=== PATIENT | female | born 1995 | race Caucasian/White ===

== ENCOUNTER 2024-11-15 05:22 | Inpatient (IN) | payer OTHER ==
[2024-11-15] MEDS: PHENAZOPYRIDINE HCL 100 MG TABLET (FP) PO ONE (06:50)
[2024-11-15] MEDS: GABAPENTIN 300 MG CAPSULE PO ONE (06:50)
[2024-11-15] MEDS ORDERED: PROPOFOL 20 ML ONE ×2 (07:13→08:28)
[2024-11-15] MEDS ORDERED: ROCURONIUM BROMIDE 50 MG/5 ML SYRINGE ONE ×3 (07:14→09:48)
[2024-11-15] MEDS ORDERED: MIDAZOLAM HCL 2 MG/2 ML SINGLE DOSE VIAL ONE ×2 (07:14→07:49)
[2024-11-15] MEDS ORDERED: HEPARIN NA (PORCINE) 5,000 UNITS/ML 1ML VIAL ONE (07:24)
[2024-11-15] MEDS ORDERED: oxyCODONE HCL 5 MG TABLET PO PRN ×2 (07:44)
[2024-11-15] MEDS ORDERED: ONDANSETRON 4 MG/2 ML VIAL IVPUSH PRN ×2 (07:44→10:51)
[2024-11-15] MEDS ORDERED: ACETAMINOPHEN 325 MG TABLET (FP) PO PRN (07:44)
[2024-11-15] MEDS: ceFAZolin SODIUM 1 GM VIAL IVPB ONE (08:04)
[2024-11-15] MEDS ORDERED: SUGAMMADEX SODIUM 200 MG/2 ML VIAL ONE (08:21)
[2024-11-15] MEDS: HEPARIN NA (PORCINE) 5,000 UNITS/ML 1ML VIAL SQ ONE (08:29)
[2024-11-15] MEDS ORDERED: OXYTOCIN 10 UNITS/ML VIAL ONE (08:45)
[2024-11-15] MEDS ORDERED: BISACODYL 5 MG TABLET.DR (FP) PO PRN (10:51)
[2024-11-15] MEDS ORDERED: SIMETHICONE 80 MG TAB.CHEW (FP) PO PRN (10:51)
[2024-11-15] MEDS: LACTATED RINGERS SOLUTION 1,000 ML IV SCH (11:17)
[2024-11-15] MEDS: CEFAZOLIN 2 GM in DEXTROSE 5%-WATER - 100 ML IVPB ONE (13:12)
[2024-11-15] MEDS: ACETAMINOPHEN 1000 MG/100 ML BAG IVPB ONE (13:12)
[2024-11-15] MEDS: CEFAZOLIN 1 GM in DEXTROSE 5%-WATER - 50 ML IVPB SCH (15:39)
[2024-11-15] MEDS: TRANEXAMIC ACID 1000 MG/10 ML VIAL IVPUSH SCH (16:38)
[2024-11-15] MEDS: ACETAMINOPHEN 1000 MG/100 ML BAG IVPB SCH (18:30)
[2024-11-15 20:04] LABS: HEMATOCRIT 36.3 % (32.4-45.2); HEMOGLOBIN 12.1 GM/dL (10.7-15.3); MCH 29.6 pg (25.7-33.7); MCHC 33.3 g/dl (32.0-36.0); MEAN CELL VOLUME 89.1 fl (80-96); MEAN PLT VOLUME 9.3 fl (7.5-11.1); PLATELET COUNT 200 10^3/uL (134-434); RBC 4.08 M/mm3 (3.60-5.2); RDW 13.9 % (11.6-15.6); WHITE BLOOD COUNT 12.7 K/mm3 (4.0-10.0)
[2024-11-15 20:40] LABS: BLOOD UREA NITROGEN 10.9 mg/dL (7-18); CALCIUM 8.1 mg/dL (8.5-10.1)
[2024-11-15] MEDS: IBUPROFEN 800 MG/8 ML IJ IVPB SCH (20:43)
[2024-11-15 20:44] LABS: CREATININE 0.8 mg/dL (0.55-1.3)
[2024-11-16] MEDS ORDERED: oxyCODONE HCL 5 MG TABLET PO PRN ×2 (07:00)
[2024-11-16 08:26] LABS: POTASSIUM 3.7 mmol/L (3.5-5.1)
[2024-11-16 08:27] LABS: CALCIUM 7.8 mg/dL (8.5-10.1)
[2024-11-16 08:28] LABS: BLOOD UREA NITROGEN 9.8 mg/dL (7-18)
[2024-11-16 08:31] LABS: CREATININE 0.5 mg/dL (0.55-1.3); HEMATOCRIT 33.5 % (32.4-45.2); HEMOGLOBIN 10.9 GM/dL (10.7-15.3); MCH 29.5 pg (25.7-33.7); MCHC 32.6 g/dl (32.0-36.0); MEAN CELL VOLUME 90.5 fl (80-96); MEAN PLT VOLUME 9.5 fl (7.5-11.1); PLATELET COUNT 188 10^3/uL (134-434); RDW 13.7 % (11.6-15.6); WHITE BLOOD COUNT 10.3 K/mm3 (4.0-10.0)
[2024-11-16] MEDS: ENOXAPARIN NA (PORCINE) 40 MG/0.4 ML DISP.SYRIN SQ SCH (10:31)
[2024-11-16] MEDS: ACETAMINOPHEN 500 MG TABLET (FP) PO SCH (15:41)
[2024-11-16] MEDS: DOCUSATE SODIUM 100 MG CAPSULE (FP) PO PRN (17:48)
[2024-11-16] MEDS: IBUPROFEN 600 MG TABLET (FP) PO SCH (20:14)
[2024-11-17 01:44] VITALS: RESP 18
[2024-11-17 09:28] VITALS: BP 120/77; PULSE 91; TEMP 98.7
== END 2024-11-17 12:47 | disposition home or self-care (01) | DRG 519 ==
LOC: JASUSAT 05:22 → J2C 10:51 → J3W 12:49
PROVIDERS: ADMIT Obstetrics & Gynecology; ATTEND Obstetrics & Gynecology
PROC: 0UB90ZZ Excision of Uterus, Open Approach (ICD-10-PCS; 2024-11-15)
PROC: 0UB10ZZ Excision of Left Ovary, Open Approach (ICD-10-PCS; principal; 2024-11-15 07:30)
DX: D25.9 Leiomyoma of uterus, unspecified (principal); N83.292 Other ovarian cyst, left side; E66.01 Morbid (severe) obesity due to excess calories; Z68.41 Body mass index [BMI] 40.0-44.9, adult
CPT/HCPCS: 36415; 36430; 36511; 80048; 81025; 85027; 86850; 86900; 86901; 86922; 88305-TC; 88309-TC; 88329; 94010; 94760; J0131; J1644; P9038; P9058